=== PATIENT | male | born 1985 | race African-American/Black ===

== ENCOUNTER 2016-06-21 15:18 | Emergency (ER) | payer SELFPAY ==
[~2016-06-21] VITALS: Ht 170.2 cm; Wt 63.8 kg
[2016-06-21 15:40] VITALS: BP 113/77
[2016-06-21] MEDS ORDERED: IBUP-1509 PO (15:40)
== END 2016-06-21 18:26 | disposition home or self-care (01) ==
LOC: ER 17:32
DX: G44.209 Tension-type headache, unspecified, not intractable (principal); Z79.1 Long term (current) use of non-steroidal anti-inflammatories (NSAID)
CPT/HCPCS: 99283